=== PATIENT | female | born 1960 | race Caucasian/White ===

== ENCOUNTER 2017-01-10 21:11 | Emergency (ER) | payer OTHER ==
[2017-01-10 23:35] VITALS: BP 142/88
== END 2017-01-11 00:49 | disposition home or self-care (01) ==
LOC: ED 21:11
DX: S16.1XXA Strain of muscle, fascia and tendon at neck level, initial encounter (principal); S20.211A Contusion of right front wall of thorax, initial encounter; R51 Headache; V49.9XXA Car occupant (driver) (passenger) injured in unspecified traffic accident, initial encounter; Y93.89 Activity, other specified; Y92.89 Other specified places as the place of occurrence of the external cause; Y99.8 Other external cause status
CPT/HCPCS: J1885

== ENCOUNTER 2017-12-28 06:07 | Day surgery (SDC) | payer OTHER ==
[~2017-12-28] VITALS: Ht 144.8 cm; Wt 68.0 kg
[2017-12-28 06:40] VITALS: BP 126/67
[2017-12-28 10:19] VITALS: BP 112/59
== END 2017-12-28 10:35 | disposition home or self-care (01) ==
LOC: DS 06:07 → GI 08:30 → OR 08:30 → DS 10:35
PROVIDERS: Internal Medicine Gastroenterology
PROC: 0DBK8ZZ Excision of Ascending Colon, Via Natural or Artificial Opening Endoscopic (ICD-10-PCS; principal; 2017-12-28 08:30)
DX: Z12.11 Encounter for screening for malignant neoplasm of colon (principal); D12.2 Benign neoplasm of ascending colon
CPT/HCPCS: 45378; J1200; J1610; J2250; J2310; J3010; J3490